=== PATIENT | male | born 1995 | race Caucasian/White ===

== ENCOUNTER 2021-09-06 22:58 | Emergency (ER) | payer MEDICAID ==
--- NOTE | 2021-09-07 01:21 | Emergency Department Report ---
ED General Adult HPI - General Chief complaint: Medical Clearance Stated complaint: BLOOD GLUCOSE PROBLEM Time Seen by Provider: 09/07/21 01:10 Source: patient, EMS Mode of arrival: Stretcher Limitations: No Limitations - History of Present Illness Initial comments: Patient is 26 years old male with history of type 1 diabetes. Patient brought to the emergency room via EMS from a local alf for evaluation of hypoglycemia. Patient stated that he is on Lantus 25 subcu in the morning. He stated that since he got his shot this morning he is unable to keep his blood glucose. Patient found to have a blood glucose of 35. Patient received D50 and started on D10 at 125 mL/h. Patient also served meal tray. Severity scale (0 -10): 2 - Related Data Allergies Allergy/AdvReac Type Severity Reaction Status Date / Time No Known Allergies Allergy Verified 09/07/21 02:25 ED Review of Systems ROS: Stated complaint: BLOOD GLUCOSE PROBLEM Other details as noted in HPI Comment: All other systems reviewed and negative Constitutional: denies: chills, fever Respiratory: denies: cough, shortness of breath, SOB with exertion, SOB at rest Cardiovascular: denies: chest pain, palpitations Gastrointestinal: denies: abdominal pain, nausea, vomiting, diarrhea, constipation, hematemesis, melena, hematochezia Musculoskeletal: denies: back pain Neurological: denies: headache, weakness, numbness, paresthesias, confusion ED Past Medical Hx - Past Medical History Previous Medical History?: No ED Physical Exam - General Limitations: No Limitations General appearance: alert, in no apparent distress - Head Head exam: Present: atraumatic, normocephalic, normal inspection - Eye Eye exam: Present: normal appearance - ENT ENT exam: Present: normal exam, normal orophraynx, mucous membranes moist - Neck Neck exam: Present: normal inspection, full ROM. Absent: tenderness, meningismus - Respiratory Respiratory exam: Present: normal lung sounds bilaterally - Cardiovascular Cardiovascular Exam: Present: regular rate, normal rhythm, normal heart sounds - GI/Abdominal GI/Abdominal exam: Present: soft, normal bowel sounds. Absent: distended, t enderness, guarding, rebound, rigid, organomegaly, mass, bruit, pulsatile mass, hernia - Extremities Exam Extremities exam: Present: normal inspection, full ROM, normal capillary refill. Absent: tenderness, pedal edema, joint swelling, calf tenderness - Back Exam Back exam: Present: normal inspection, full ROM. Absent: CVA tenderness (R), CVA tenderness (L) - Neurological Exam Neurological exam: Present: alert, oriented X3, CN II-XII intact, reflexes normal. Absent: motor sensory deficit - Psychiatric Psychiatric exam: Present: normal mood - Skin Skin exam: Present: warm, intact, normal color ED Course Vital Signs 09/06/21 09/07/21 22:59 00:45 Temperature 97.8 F 99.8 F H Pulse Rate 70 87 Respiratory 18 18 Rate Blood Pressure 118/70 116/73 [Right] O2 Sat by Pulse 98 99 Oximetry ED Medical Decision Making - Lab Data Result diagrams: 09/07/21 02:04 09/07/21 02:04 - Medical Decision Making Patient is 26 years old male with history of type 1 diabetes. Patient brought to the emergency room via EMS from a local alf for evaluation of hypoglycemia. Patient stated that he is on Lantus 25 subcu in the morning. He stated that since he got his shot this morning he is unable to keep his blood glucose. Patient found to have a blood glucose of 35. Patient received D50 and started on D10 at 125 mL/h. Patient also served meal tray. Patient remained stable in the ER with stable vital signs. Blood glucose remain stable even after stopping the D10 1hour later. Patient advised to watch carefully for his medication and to follow-up with his primary doctor in the next 2 to 3 days. Patient also complaining of diarrhea and he received Bentyl in the ER and stated that helped a lot with his cramping. Critical care attestation.: If time is entered above; I have spent that time in minutes in the direct care of this critically ill patient, excluding procedure time. ED Disposition Clinical Impression: Hypoglycemia, Acute diarrhea Disposition: HOME / SELF CARE / HOMELESS Is pt being admited?: No Condition: Stable Instructions: Hypoglycemia, Blood Glucose Monitoring, Adult, Diarrhea, Adult, [id number] Referrals: PRIMARY CARE, [Primary Care Provider] - 3-5 Days
[2021-09-07] MEDS ORDERED: DEXTROSE 10% IN WATER 1,000 ML IV SCH (02:00)
[2021-09-07 02:32] LABS: Basophils % (Auto) 0.3 % (0.0-1.8); Eosinophils % (Auto) 0.3 % (0.0-4.3); Lymphocytes # (Auto) 1.4 K/mm3 (1.2-5.4); Mean Corpuscular HGB Conc 30 % (32-34); Mean Corpuscular Volume 78 fl (84-94); Monocytes # (Auto) 0.5 K/mm3 (0.0-0.8); Monocytes % (Auto) 8.8 % (0.0-7.3); Platelet Count 360 K/mm3 (140-440); Red Blood Count 4.39 M/mm3 (3.65-5.03); Red Cell Distribution Width 17.1 % (13.2-15.2)
[2021-09-07] MEDS ORDERED: DICYCLOMINE 20 MG TAB PO ONE (02:33)
[2021-09-07 02:45] LABS: Hematocrit 34.4 % (35.5-45.6); Hemoglobin 10.2 gm/dl (11.8-15.2)
[2021-09-07 02:58] LABS: Alanine Aminotransferase 93 units/L (7-56); Albumin 3.3 g/dL (3.9-5); Blood Urea Nitrogen 10 mg/dL (9-20); Calcium 7.7 mg/dL (8.4-10.2); Hemolysis Index 1
[2021-09-07 03:35] LABS: BUN/Creatinine Ratio 20; Bilirubin,Direct < 0.2 mg/dL (0-0.2)
[2021-09-07 05:03] LABS: Bilirubin,Urine NEG (Negative); Blood,Urine NEG (Negative); Color,Urine Yellow (Yellow); Mucus,Urine FEW /HPF; Protein,Urine <15 mg/dL mg/dL (Negative); RBC,Urine < 1.0 /HPF (0.0-6.0); Urobilinogen,Urine < 2.0 mg/dL (<2.0)
[2021-09-07 05:37] VITALS: BP 121/72
== END 2021-09-07 05:28 | disposition home or self-care (01) ==
LOC: ED 22:58
DX: E10.649 Type 1 diabetes mellitus with hypoglycemia without coma (principal); R19.7 Diarrhea, unspecified
CPT/HCPCS: 36415; 80048; 80076; 81001; 82962; 85025; 96365; 96366; 99284; J3490